=== PATIENT | female | born 2000 | race Two or more races ===

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

== ENCOUNTER 2022-04-28 10:56 | Emergency (ER) | payer OTHER ==
[~2022-04-28] VITALS: Ht 154.9 cm; Wt 82.1 kg
[~2022-04-28 10:56] MED LIST changes: +ALBUTEROL2.5 MG/3 M IH; +METHYLPREDNISOLO8 MG PO; +TUSICOF CAPLET1 EACH PO
== END 2022-04-28 14:50 | disposition home or self-care (01) ==
LOC: ER 10:56
DX: O26.891 Other specified pregnancy related conditions, first trimester (principal); Z3A.01 Less than 8 weeks gestation of pregnancy; R10.2 Pelvic and perineal pain

== ENCOUNTER 2022-06-27 08:20 | Outpatient (CLI) | payer OTHER | END 2022-06-27 10:00 | disposition home or self-care (01) | LOC: PRENATAL 08:20 | PROVIDERS: ATTEND Obstetrics & Gynecology Maternal & Fetal Medicine | DX: O36.80X0 Pregnancy with inconclusive fetal viability, not applicable or unspecified (principal); Z3A.12 12 weeks gestation of pregnancy ==

== ENCOUNTER 2022-08-16 08:18 | Outpatient (CLI) | payer OTHER | END 2022-08-16 09:58 | disposition home or self-care (01) | LOC: PRENATAL 08:18 | PROVIDERS: ATTEND Obstetrics & Gynecology Maternal & Fetal Medicine | DX: O35.9XX0 Maternal care for (suspected) fetal abnormality and damage, unspecified, not applicable or unspecified (principal); Z3A.20 20 weeks gestation of pregnancy ==

== ENCOUNTER 2022-11-08 10:10 | Outpatient (CLI) | payer OTHER | END 2022-11-08 11:10 | disposition home or self-care (01) | LOC: PRENATAL 10:10 | PROVIDERS: ATTEND Obstetrics & Gynecology Maternal & Fetal Medicine | DX: O26.849 Uterine size-date discrepancy, unspecified trimester (principal); O36.8199 Decreased fetal movements, unspecified trimester, other fetus; Z14.8 Genetic carrier of other disease; Z3A.32 32 weeks gestation of pregnancy ==

== ENCOUNTER 2022-11-23 14:00 | Emergency (ER) | payer OTHER ==
[~2022-11-23] VITALS: Ht 157.5 cm; Wt 88.5 kg
== END 2022-11-23 16:47 | disposition home or self-care (01) ==
LOC: ER 14:00
DX: O98.513 Other viral diseases complicating pregnancy, third trimester (principal); Z3A.49 Greater than 42 weeks gestation of pregnancy; Z91.018 Allergy to other foods; O23.33 Infections of other parts of urinary tract in pregnancy, third trimester; N39.0 Urinary tract infection, site not specified; Z20.822 Contact with and (suspected) exposure to COVID-19

== ENCOUNTER 2022-12-23 00:44 | Outpatient (CLI) | payer OTHER ==
[2022-12-23] MEDS ORDERED: FOLIC ACID20 MG PO (00:55)
[2022-12-23] MEDS ORDERED: SYNTHROID50 MCG PO (00:55)
[2022-12-23] MEDS ORDERED: PRENATAL TABLE1 EAC1 PO (00:55)
== END 2022-12-23 10:34 | disposition home or self-care (01) ==
LOC: OBS/DEL 00:44
PROVIDERS: ATTEND Obstetrics & Gynecology
DX: O47.1 False labor at or after 37 completed weeks of gestation (principal); Z3A.38 38 weeks gestation of pregnancy; Z91.018 Allergy to other foods

== ENCOUNTER 2022-12-26 08:53 | Inpatient (IN) | payer OTHER ==
[~2022-12-26] VITALS: Ht 157.5 cm; Wt 88.0 kg
[~2022-12-26 08:53] MED LIST changes: +FOLIC ACID20 MG PO; +PRENATAL TABLE1 EAC1 PO; +SYNTHROID50 MCG PO
== END 2022-12-28 14:25 | disposition home or self-care (01) | DRG 807 ==
LOC: OB/GYN 08:53 → LDR 08:53 → OB/GYN 18:14
PROVIDERS: ADMIT Obstetrics & Gynecology; ATTEND Obstetrics & Gynecology
PROC: 10E0XZZ Delivery of Products of Conception, External Approach (ICD-10-PCS; principal; 2022-12-26)
PROC: 0KQM0ZZ Repair Perineum Muscle, Open Approach (ICD-10-PCS; 2022-12-26)
PROC: 4A1HXCZ Monitoring of Products of Conception, Cardiac Rate, External Approach (ICD-10-PCS; 2022-12-26)
DX: O70.1 Second degree perineal laceration during delivery (principal); Z37.0 Single live birth; Z3A.38 38 weeks gestation of pregnancy; Z20.822 Contact with and (suspected) exposure to COVID-19

== ENCOUNTER 2023-10-27 17:07 | Emergency (ER) | payer OTHER ==
[~2023-10-27] VITALS: Ht 157.5 cm; Wt 85.7 kg
[2023-10-27] MEDS ORDERED: KETOROLAC TROMETHAMINE 30 MG VIAL IM STA (19:19)
== END 2023-10-27 19:38 | disposition home or self-care (01) ==
LOC: ER 17:08
DX: J06.9 Acute upper respiratory infection, unspecified (principal); Z91.018 Allergy to other foods; Z20.822 Contact with and (suspected) exposure to COVID-19

== ENCOUNTER → 2025-02-20 | Emergency (ER) | payer OTHER ==
[~2025-02-20] VITALS: Ht 157.5 cm; Wt 90.7 kg
== END | disposition left against medical advice (07) ==
LOC: ER 20:59
DX: Z53.21 Procedure and treatment not carried out due to patient leaving prior to being seen by health care provider (principal)